=== PATIENT | female | born 1990 | race Hispanic/Latino ===

== ENCOUNTER 2020-08-06 21:41 | Emergency (ER) | payer SELFPAY ==
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
[2020-08-06 22:29] LABS: Absolute Lymphocytes (CBC) 1.6 K/uL (0.7-4.9); Basophils % 1.1 % (0-1.3); Lymphocytes % 21.6 % (15.3-44.8); MPV 9.3 fL (7.6-11.3); RBC Red Blood Cell Count 4.32 M/uL (3.86-4.86)
[2020-08-06] MEDS ORDERED: FAMOTIDINE 20 MG/2 ML VIAL IV ONE (22:36)
[2020-08-06] MEDS ORDERED: MORPHINE 4 MG/ML SYR ONE (22:36)
[2020-08-06] MEDS ORDERED: NA CHLORIDE 0.9% 1,000 ML ONE (22:36)
[2020-08-06] MEDS ORDERED: ONDANSETRON 4 MG/2 ML VIAL ONE (22:36)
[2020-08-06 22:48] LABS: ALT/SGPT 68 U/L (12-78); AST/SGOT 46 U/L (15-37); Albumin 3.7 g/dL (3.4-5.0); Alkaline Phosphatase 124 U/L (45-117); BUN Blood Urea Nitrogen 10 mg/dL (7-18); Bicarbonate 28 mmol/L (21-32); Bilirubin Direct < 0.1 mg/dL (0-0.2); Bilirubin Total 0.2 mg/dL (0.2-1.0); Glucose Level 92 mg/dL (74-106); Lipase 119 U/L (73-393); Potassium 3.5 mmol/L (3.5-5.1); Sodium Level 144 mmol/L (136-145); Troponin (Emerg Dept Use Only) < 0.02 ng/mL (0.0-0.045)
[2020-08-06 23:28] LABS: Urine Blood 2+ (NEG); Urine Glucose NEGATIVE (NEG); Urine Protein NEGATIVE (NEG); Urine Specific Gravity >1.030 (1.005-1.030)
[2020-08-07 00:23] LABS: Urine Amorphous Sediment 2+ /HPF (NONE SEEN); Urine Bacteria >50 /HPF (<20); Urine Culture Reflex Order REFLEXED; Urine Mucus 2+ /HPF (NONE SEEN)
--- NOTE | 2020-08-07 01:53 | ER ---
Nurse's Notes [facility] Name: Gwyn Callejas Age: 30 yrs Sex: Female : 1990 Arrival Date: 08/06/2020 Time: 21:42 Bed 15 Private MD: Diagnosis: Chest pain, unspecified;Abdominal Pain;Cholelithiasis Presentation: 08/06 21:52 Chief complaint: Patient states: Sudden onset of lower chest pain/epigastric pain at ll1 0854 tonight while watching tv sitting on the couch. Pain was so severe she couldn't stand. + SOB at the time. No fever. Coronavirus screen: Client denies travel out of the [place] in the last 14 days. At this time, the client does not indicate any symptoms associated with coronavirus-19. Ebola Screen: Patient denies travel to an Ebola-affected area in the 21 days before illness onset. Initial Sepsis Screen: Does the patient meet any 2 criteria? No. Patient's initial sepsis screen is negative. Risk Assessment: Do you want to hurt yourself or someone else? Patient reports no desire to harm self or others. Onset of symptoms was August 06, 2020. 21:52 Method Of Arrival: EMS: [facility] ll1 21:52 Acuity: MEG 3 ll1 22:30 Initial Sepsis Screen: Does the patient have a suspected source of infection? Yes: wh Acute abdominal pain. 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 - Social history:: Smoking status: Patient denies any tobacco usage or history of. Screenin:00 Abuse screen: Denies threats or abuse. Denies injuries from another. Nutritional screening: No deficits noted. Tuberculosis screening: No symptoms or risk factors identified. Fall Risk None identified. Assessment: 22:05 General: Appears in no apparent distress. Behavior is calm, cooperative, appropriate wh for age. Pain: Complains of pain in chest Pain does not radiate. Pain currently is 4 out of 10 on a pain scale. Quality of pain is described as sharp, Pain began 2 hours ago. Is intermittent. Neuro: Level of Consciousness is awake, alert, obeys commands, Oriented to person, place, time, situation, Appropriate for age. Cardiovascular: Reports chest pain, Heart tones S1 S2 Rhythm is regular. Respiratory: Airway is patent Respiratory effort is even, unlabored, Respiratory pattern is regular, symmetrical, Breath sounds are clear bilaterally. GI: Abdomen is flat, non-distended, Bowel sounds present X 4 quads. Abd is soft Abdomen is tender to palpation in epigastric area. : No signs and/or symptoms were reported regarding the genitourinary system. EENT: No signs and/or symptoms were reported regarding the EENT system. Derm: Skin is intact, is healthy with good turgor, Skin is pink, warm \T\ dry. normal. Musculoskeletal: Circulation, motion, and sensation intact. 23:30 Reassessment: Patient appears in no apparent distress at this time. No changes from previously documented assessment. Patient and/or family updated on plan of care and expected duration. Pain level reassessed. Patient is alert, oriented x 3, equal unlabored respirations, skin warm/dry/pink. 08/07 01:00 Reassessment: Patient appears in no apparent distress at this time. Patient and/or family updated on plan of care and expected duration. Pain level reassessed. Patient is alert, oriented x 3, equal unlabored respirations, skin warm/dry/pink. 02:20 Reassessment: Patient appears in no apparent distress at this time. Patient and/or family updated on plan of care and expected duration. Pain level reassessed. Patient is alert, oriented x 3, equal unlabored respirations, skin warm/dry/pink. Vital Signs: 08/06 21:52 BP 120 / 79; Pulse 88; Resp 18; Temp 98.4; Pulse Ox 100% ; Weight 80.74 kg; Height 5 ll1 ft. 1 in. (154.94 cm); Pain 4/10; 23:30 BP 124 / 74; Pulse 81; Resp 18; Pulse Ox 100% on R/A; 08/07 01:00 BP 124 / 78; Pulse 89; Resp 18; Pulse Ox 100% on R/A; 02:00 BP 118 / 68; Pulse 18; Resp 18; Pulse Ox 99% on R/A; 08/06 21:52 Body Mass Index 33.63 (80.74 kg, 154.94 cm) ll1 ED Course: 08/06 21:42 Patient arrived in ED. cl3 21:54 Triage completed. ll1 21:55 Arm band placed on Patient placed in an exam room, on a stretcher. ll1 22:00 Malcom Noble is Primary Nurse. 22:02 Pedro Choi MD is Attending Physician. 7 22:30 Patient has correct armband on for positive identification. Bed in low position. Call light in reach. Side rails up X 1. manager control on. Pulse ox on. NIBP on. 22:30 No provider procedures requiring assistance completed. Inserted saline lock: 20 gauge in left antecubital area, using aseptic technique. Blood collected. Patient maintains SpO2 saturation greater than 95% on room air. 22:41 Chest Single View XRAY In Process Unspecified. EDWI 08/07 01:16 CT Chest For PE Angio In Process Unspecified. EDMS 01:16 CT Abd/Pelvis - IV Contrast Only In Process Unspecified. EDMS 01:52 Bairon Angeles MD is Referral Physician. [facility] 02:38 IV discontinued, intact, bleeding controlled, No redness/swelling at site. Administered Medications: 08/06 22:26 Drug: NS 0.9% 1000 ml Route: IV; Rate: 1000 ml; Site: left antecubital; 23:06 Follow up: Response: No adverse reaction; IV Status: Completed infusion 22:28 Drug: Pepcid 20 mg Route: IVP; Site: left antecubital; 23:06 Follow up: Response: No adverse reaction 22:30 Drug: Zofran (Ondansetron) 4 mg Route: IVP; Site: left antecubital; 23:06 Follow up: Response: No adverse reaction 08/07 02:35 Not Given (Patient Refused): morphine 2 mg IVP once; RASS on ADMIN: Combtv4, Very wh Agttd3, Agttd2, Rstlss1, AlertClm0, Drwsy-1, Lt Sdtn-2, Mod Sdtn-3, Dp Sdtn-4, UnArsble-5 Outcome: 01:53 Discharge ordered by . [facility] 02:35 Discharged to home ambulatory. 02:35 Condition: stable 02:35 Discharge instructions given to patient, Instructed on discharge instructions, follow up and referral plans. medication usage, POC Demonstrated understanding of instructions, follow-up care, medications, POC Prescriptions given X 3. 02:39 Patient left the ED. Signatures: Dispatcher [employer] EDMS Malcom Noble Marcus Barahona cl3 Radha Barahona RN RN ll1 Pedro Choi MD MD [email or web address] Corrections: (The following items were deleted from the chart) 08/06 22:31 22:26 morphine 2 mg IVP in left antecubital [facility]
--- NOTE | 2020-08-07 01:54 | EDPHYS ---
[facility] Gwyn Callejas Age: 30 yrs Sex: Female : 1990 Arrival Date: 08/06/2020 Time: 21:42 Bed 15 Private MD: ED Physician Pedro Choi HPI: 08/07 00:43 This 30 yrs old Female presents to ER via EMS with complaints of Chest Pain. mh7 00:43 The patient or guardian reports chest pain that is located primarily in the epigastric mh7 area. 00:44 The pain does not radiate. Associated signs and symptoms: Pertinent negatives: cough, mh7 diaphoresis, dizziness, headache, lower extremity pain, lower extremity swelling, lightheadedness, near syncope, palpitations, recent travel, syncope. 00:45 Associated signs and symptoms: Pertinent positives: abdominal pain, shortness of mh7 breath, Pertinent negatives: nausea, vomiting. The chest pain is described as sharp. Duration: The patient or guardian reports multiple episodes, that are intermittent, that wax and wane, with no pattern. Modifying factors: The symptoms are alleviated by nothing. the symptoms are aggravated by nothing. Severity of pain: At its worst the pain was moderate today, in the emergency department the pain is unchanged. 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 - Social history:: Smoking status: Patient denies any tobacco usage or history of. ROS: 08/07 00:45 Constitutional: Negative for fever, chills, and weight loss, Eyes: Negative for injury, mh7 pain, redness, and discharge, ENT: Negative for injury, pain, and discharge, Neck: Negative for injury, pain, and swelling, Back: Negative for injury and pain, : Negative for injury, bleeding, discharge, and swelling, MS/Extremity: Negative for injury and deformity, Skin: Negative for injury, rash, and discoloration, Neuro: Negative for headache, weakness, numbness, tingling, and seizure, Psych: Negative for depression, anxiety, suicide ideation, homicidal ideation, and hallucinations, Allergy/Immunology: Negative for hives, rash, and allergies, Endocrine: Negative for neck swelling, polydipsia, polyuria, polyphagia, and marked weight changes, Hematologic/Lymphatic: Negative for swollen nodes, abnormal bleeding, and unusual bruising. Exam: 00:45 Head/Face: Normocephalic, atraumatic. Eyes: Pupils equal round and reactive to light, mh7 extra-ocular motions intact. Lids and lashes normal. Conjunctiva and sclera are non-icteric and not injected. Cornea within normal limits. Periorbital areas with no swelling, redness, or edema. Neck: Trachea midline, no thyromegaly or masses palpated, and no cervical lymphadenopathy. Supple, full range of motion without nuchal rigidity, or vertebral point tenderness. No Meningismus. Chest/axilla: Normal chest wall appearance and motion. Nontender with no deformity. No lesions are appreciated. Cardiovascular: Regular rate and rhythm with a normal S1 and S2. No gallops, murmurs, or rubs. Normal PMI, no JVD. No pulse deficits. Respiratory: Lungs have equal breath sounds bilaterally, clear to auscultation and percussion. No rales, rhonchi or wheezes noted. No increased work of breathing, no retractions or nasal flaring. 00:45 Back: No spinal tenderness. No costovertebral tenderness. Full range of motion. Skin: Warm, dry with normal turgor. Normal color with no rashes, no lesions, and no evidence of cellulitis. MS/ Extremity: Pulses equal, no cyanosis. Neurovascular intact. Full, normal range of motion. Neuro: Awake and alert, GCS 15, oriented to person, place, time, and situation. Cranial nerves II-XII grossly intact. Motor strength 5/5 in all extremities. Sensory grossly intact. Cerebellar exam normal. Normal gait. Psych: Awake, alert, with orientation to person, place and time. Behavior, mood, and affect are within normal limits. 00:45 Constitutional: The patient appears in no acute distress, alert, awake, uncomfortable. 00:45 Abdomen/GI: Inspection: abdomen appears normal, Bowel sounds: normal, in all quadrants, Palpation: moderate abdominal tenderness, in the epigastric area, Rectal exam: the exam is deferred, because of patient request, Indicators: McBurney's point is not tender, Olivia's sign is negative, Rovsing's sign is negative, Obturator sign is negative, Psoas sign is negative, Liver: no appreciated palpable abnormalities, Hernia: not appreciated. Vital Signs: 08/06 21:52 BP 120 / 79; Pulse 88; Resp 18; Temp 98.4; Pulse Ox 100% ; Weight 80.74 kg; Height 5 ll1 ft. 1 in. (154.94 cm); Pain 4/10; 23:30 BP 124 / 74; Pulse 81; Resp 18; Pulse Ox 100% on R/A; wh 08/07 01:00 BP 124 / 78; Pulse 89; Resp 18; Pulse Ox 100% on R/A; 02:00 BP 118 / 68; Pulse 18; Resp 18; Pulse Ox 99% on R/A; 08/06 21:52 Body Mass Index 33.63 (80.74 kg, 154.94 cm) ll1 MDM: 08/06 22:12 Patient medically screened. 7 08/07 01:50 Differential diagnosis: acute myocardial infarction, acute pericarditis, anxiety, chest [facility] wall pain, cholecystitis, Cholelithiasis costochondritis, esophagitis, gastritis, pancreatitis, peptic ulcer disease, pericarditis, pleurisy, pneumonia, pneumothorax, pulmonary embolus. HEART Score: History: Slightly Suspicious (0), ECG: Normal (0), Age: < or = 45 years (0), Risk Factors: No Risk Factors Known (0), Troponin: < or = 1 x Normal Limit (0), Total Score = 0. Data reviewed: vital signs, nurses notes, lab test result(s), amylase and lipase, cardiac enzymes, CBC, electrolytes, urinalysis. Data interpreted: Pulse oximetry: on room air is 100 %. Interpretation: normal. Counseling: I had a detailed discussion with the patient and/or guardian regarding: the historical points, exam findings, and any diagnostic results supporting the discharge/admit diagnosis, lab results, radiology results, the need for outpatient follow up, to return to the emergency department if symptoms worsen or persist or if there are any questions or concerns that arise at home. Response to treatment: the patient's symptoms have resolved after treatment, the patient's blood pressure is in an acceptable range, mental status has returned to baseline, the patient no longer shows bradycardia, the patient is not short of breath, the patient is not tachycardic, the patient's pain is gone, the patient's temperature has normalized, the patient is now symptom free, patient is well hydrated. 08/06 22:13 Order name: Basic Metabolic Panel [facility] 08/06 22:13 Order name: CBC with Diff; Complete Time: 00:08 [facility] 08/06 22:13 Order name: Hepatic Function [facility] 08/06 22:13 Order name: Lipase; Complete Time: 00:08 [facility] 08/06 22:14 Order name: Basic Metabolic Panel; Complete Time: 00:08 [facility] 08/06 22:14 Order name: Liver (Hepatic) Function; Complete Time: 00:08 [facility] 08/06 22:14 Order name: Troponin (emerg Dept Use Only); Complete Time: 00:08 [facility] 08/06 22:14 Order name: Chest Single View XRAY [facility] 08/06 23:21 Order name: Urine Microscopic Only; Complete Time: 01:24 [facility] 08/06 23:22 Order name: Urine Dipstick--Ancillary (enter results); Complete Time: 00:08 [facility] 08/06 23:22 Order name: Urine --Ancillary (enter results); Complete Time: 00:08 [facility] 08/07 00:09 Order name: CT Chest For PE Angio [facility] 08/07 00:09 Order name: CT Abd/Pelvis - IV Contrast Only [facility] 08/07 00:24 Order name: Urine Culture [facility] 08/06 22:13 Order name: IV Saline Lock; Complete Time: 22:22 [facility] 08/06 22:13 Order name: Labs collected and sent; Complete Time: 22:22 [facility] 08/06 22:13 Order name: EKG - Nurse/Tech; Complete Time: 22:22 [facility] 08/06 22:13 Order name: Urine Dipstick-Ancillary (obtain specimen); Complete Time: 23:22 [facility] 08/06 22:13 Order name: Urine Test (obtain specimen); Complete Time: 23:22 [facility] Administered Medications: 08/06 22:26 Drug: NS 0.9% 1000 ml Route: IV; Rate: 1000 ml; Site: left antecubital; 23:06 Follow up: Response: No adverse reaction; IV Status: Completed infusion 22:28 Drug: Pepcid 20 mg Route: IVP; Site: left antecubital; 23:06 Follow up: Response: No adverse reaction 22:30 Drug: Zofran (Ondansetron) 4 mg Route: IVP; Site: left antecubital; 23:06 Follow up: Response: No adverse reaction 08/07 02:35 Not Given (Patient Refused): morphine 2 mg IVP once; RASS on ADMIN: Combtv4, Very wh Agttd3, Agttd2, Rstlss1, AlertClm0, Drwsy-1, Lt Sdtn-2, Mod Sdtn-3, Dp Sdtn-4, UnArsble-5 Disposition: 08/07/20 01:53 Discharged to Home. Impression: Chest pain, unspecified, Abdominal Pain, Cholelithiasis. - Condition is Stable. - Discharge Instructions: Cholelithiasis, Uild-lg-Swmn, Abdominal Pain, Adult, Kiiu-dy-Qgvf, Nonspecific Chest Pain, Ifim-kn-Afes. - Prescriptions for Zofran ODT 4 mg Oral tablet,disintegrating - place 1 tablet by TRANSLINGUAL route every 8 hours As needed; 6 tablet. Bentyl 20 mg Oral Tablet - take 1 tablet by ORAL route every 6 hours As needed; 20 tablet. Ibuprofen 800 mg Oral Tablet - take 1 tablet by ORAL route every 8 hours As needed take with food; 12 tablet. - Medication Reconciliation Form, Thank You Letter, Antibiotic Education, Prescription Opioid Use form. - Follow up: Private Physician; When: 1 - 2 days; Reason: Worsening of condition, Recheck today's complaints, Continuance of care, Re-evaluation by your physician. Follow up: Bairon Angeles MD; When: 1 - 2 days; Reason: Worsening of condition, Recheck today's complaints. - Problem is new. - Symptoms have improved. Signatures: Dispatcher [employer] EDCO Malcom Noble Radha Barahona RN RN ll1 Pedro Choi MD MD mh7 Corrections: (The following items were deleted from the chart) 02:39 01:53 08/07/2020 01:53 Discharged to Home. Impression: Chest pain, unspecified; wh Abdominal Pain; Cholelithiasis. Condition is Stable. Forms are Medication Reconciliation Form, Thank You Letter, Antibiotic Education, Prescription Opioid Use. Follow up: Private Physician; When: 1 - 2 days; Reason: Worsening of condition, Recheck today's complaints, Continuance of care, Re-evaluation by your physician. Follow up: Bairon Angeles; When: 1 - 2 days; Reason: Worsening of condition, Recheck today's complaints. Problem is new. Symptoms have improved. mh7
[2020-08-07 02:48] VITALS: TEMP 98.4
[2020-08-07 02:51] VITALS: BP 118/68; O2SAT 99
--- NOTE | 2020-08-07 13:42 | RAD REPORT ---
EXAM DESCRIPTION: Vielka Single View08/06/2020 10:42 pm CLINICAL HISTORY: Chest pain COMPARISON: none FINDINGS: The lungs appear clear of acute infiltrate. The heart is normal size IMPRESSION: No acute abnormalities displayed
--- NOTE | 2020-08-07 21:32 | RAD REPORT ---
EXAM DESCRIPTION: CT - Abdomen Pelvis W Contrast - 08/07/2020 6:47 am CLINICAL HISTORY: CHEST PAIN TECHNIQUE: Contiguous axial images obtained through the chest during angiographic phase following th e uneventful administration of IV contrast. Sagittal and coronal reformatted images were provided. AL P reformatted images were provided. This exam was performed according to our departmental dose-optimization program, which includes autom ated exposure control, adjustment of the mA and/or kV according to patient size and/or use of iterati ve reconstruction technique. COMPARISON: No prior exams provided for comparison. FINDINGS: Diagnostic quality: There is good opacification of the pulmonary arterial tree. Motion art ifact degrades image quality and limits evaluation of segmental and subsegmental vessels. Lungs: 4 mm right apical nodule (series 401 image 26). No focal consolidation. Airways are patent. Pleura: No effusion. No pneumothorax. Heart and pericardium: The heart is normal in size. Minimal pericardial fluid. Mediastinum and troy: No pathologically enlarged lymph nodes. Lower neck and chest wall: Unremarkable Vessels: No pulmonary arterial filling defects. No thoracic aortic aneurysm. Bones: Minimal multilevel osteophytic lipping. No acute fracture. IMPRESSION: 1. Motion artifact degrades image quality and limits evaluation of segmental and subse gmental vessels. No central pulmonary embolic disease. 2. No focal infiltrate. 3. Other findings as above. EXAM DESCRIPTION: CT ABDOMEN PELVIS WITH IV CONTRAST (accession [id number]) CLINICAL HISTORY: ABDOMINAL PAIN TECHNIQUE: Contiguous axial images obtained through the abdomen and pelvis following the uneventful administration of IV contrast. Coronal and sagittal reformatted images were provided. This exam was performed according to our departmental dose-optimization program, which includes autom ated exposure control, adjustment of the mA and/or kV according to patient size and/or use of iterati ve reconstruction technique. COMPARISON: None available for comparison. FINDINGS: Liver: The liver is enlarged. Gallbladder and biliary system: Gallstones within a contracted gallbladder. The gallbladder wall is t op normal in thickness. No pericholecystic fluid. Pancreas: Unremarkable Spleen: Unremarkable Adrenals: Unremarkable Kidneys: Normal renal cortical enhancement. No calculi. No hydronephrosis. Bowel: Moderate stool. No obstruction. No appreciable mucosal thickening. Appendix: Normal caliber appendix. No findings to suggest acute appendicitis. Urinary bladder: Unremarkable Reproductive: Unremarkable as visualized Lymph nodes: No pathologically enlarged lymph nodes. Peritoneum: No focal fluid collection. No free air. Vessels: No abdominal aortic aneurysm. Abdominal wall: Tiny fat-containing umbilical hernia. Bones: Mild to moderate degenerative changes at L5-S1. No acute fracture. IMPRESSION: 1. Cholelithiasis. Top normal gallbladder wall thickness. No pericholecystic fluid. 2. Moderate stool. No obstruction. 3. Other findings as above. Electronically signed by: Dimitry Odell MD 08/07/2020 1:36 AM CDT Due to temporary technical issues with the PACS/Fluency reporting system, reports are being signed by the in house radiologist without review as a courtesy to ensure prompt reporting. The interpreting r adiologist is fully responsible for the content of the report.
--- NOTE | 2020-08-07 21:36 | RAD REPORT ---
EXAM DESCRIPTION: CT CHEST ANGIOGRAPHY WITH IV CONTRAST CLINICAL HISTORY: CHEST PAIN TECHNIQUE: Contiguous axial images obtained through the chest during angiographic phase following th e uneventful administration of IV contrast. Sagittal and coronal reformatted images were provided. [place] P reformatted images were provided. This exam was performed according to our departmental dose-optimization program, which includes autom ated exposure control, adjustment of the mA and/or kV according to patient size and/or use of iterati ve reconstruction technique. COMPARISON: No prior exams provided for comparison. FINDINGS: Diagnostic quality: There is good opacification of the pulmonary arterial tree. Motion art ifact degrades image quality and limits evaluation of segmental and subsegmental vessels. Lungs: 4 mm right apical nodule (series 401 image 26). No focal consolidation. Airways are patent. Pleura: No effusion. No pneumothorax. Heart and pericardium: The heart is normal in size. Minimal pericardial fluid. Mediastinum and troy: No pathologically enlarged lymph nodes. Lower neck and chest wall: Unremarkable Vessels: No pulmonary arterial filling defects. No thoracic aortic aneurysm. Bones: Minimal multilevel osteophytic lipping. No acute fracture. IMPRESSION: 1. Motion artifact degrades image quality and limits evaluation of segmental and subse gmental vessels. No central pulmonary embolic disease. 2. No focal infiltrate. 3. Other findings as above. EXAM DESCRIPTION: CT ABDOMEN PELVIS WITH IV CONTRAST (accession [id number]) CLINICAL HISTORY: ABDOMINAL PAIN TECHNIQUE: Contiguous axial images obtained through the abdomen and pelvis following the uneventful administration of IV contrast. Coronal and sagittal reformatted images were provided. This exam was performed according to our departmental dose-optimization program, which includes autom ated exposure control, adjustment of the mA and/or kV according to patient size and/or use of iterati ve reconstruction technique. COMPARISON: None available for comparison. FINDINGS: Liver: The liver is enlarged. Gallbladder and biliary system: Gallstones within a contracted gallbladder. The gallbladder wall is t op normal in thickness. No pericholecystic fluid. Pancreas: Unremarkable Spleen: Unremarkable Adrenals: Unremarkable Kidneys: Normal renal cortical enhancement. No calculi. No hydronephrosis. Bowel: Moderate stool. No obstruction. No appreciable mucosal thickening. Appendix: Normal caliber appendix. No findings to suggest acute appendicitis. Urinary bladder: Unremarkable Reproductive: Unremarkable as visualized Lymph nodes: No pathologically enlarged lymph nodes. Peritoneum: No focal fluid collection. No free air. Vessels: No abdominal aortic aneurysm. Abdominal wall: Tiny fat-containing umbilical hernia. Bones: Mild to moderate degenerative changes at L5-S1. No acute fracture. IMPRESSION: 1. Cholelithiasis. Top normal gallbladder wall thickness. No pericholecystic fluid. 2. Moderate stool. No obstruction. 3. Other findings as above. Electronically signed by: Dimitry Odell MD 08/07/2020 1:36 AM CDT Due to temporary technical issues with the PACS/Fluency reporting system, reports are being signed by the in house radiologist without review as a courtesy to ensure prompt reporting. The interpreting r adiologist is fully responsible for the content of the report.
== END 2020-08-07 02:39 | disposition home or self-care (01) ==
LOC: ER 21:41
DX: K80.20 Calculus of gallbladder without cholecystitis without obstruction (principal); R10.13 Epigastric pain
CPT/HCPCS: 36415; 71045; 71275; 74177; 80048; 80076; 81003; 81015; 81025; 83690; 84484; 85025; 87086; 87088; 93005; 96361; 96374; 96375; 99285; J2405; J7030; Q9967

== ENCOUNTER 2021-01-08 16:26 | Emergency (ER) | payer SELFPAY ==
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
[2021-01-08] MEDS ORDERED: ACETAMINOPHEN 500 MG TAB ONE (17:17)
[2021-01-08] MEDS ORDERED: ONDANSETRON 4 MG (ODT) TAB ONE (17:17)
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
--- NOTE | 2021-01-08 17:56 | RAD REPORT ---
EXAM DESCRIPTION: RAD - Shoulder Right 2 View - 01/08/2021 5:00 pm CLINICAL HISTORY: PAIN COMPARISON: No comparisons FINDINGS: No fracture or dislocation seen.
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
[2021-01-08] MEDS ORDERED: KETOROLAC 30 MG/ML INJ ONE (18:41)
[2021-01-08] MEDS ORDERED: CYCLOBENZAPRINE 10 MG TAB ONE (18:41)
[2021-01-08 19:45] VITALS: O2SAT 99
[2021-01-08 19:46] VITALS: BP 122/80; TEMP 98
== END 2021-01-08 18:41 | disposition home or self-care (01) ==
LOC: ER 16:26
DX: M54.2 Cervicalgia (principal); M25.511 Pain in right shoulder
CPT/HCPCS: 70450; 72125; 96372; 99284

== ENCOUNTER 2021-03-10 20:23 | Emergency (ER) | payer SELFPAY ==
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
--- NOTE | 2021-03-11 00:30 | ER ---
Nurse's Notes [facility] Name: Gwyn Callejas Age: 30 yrs Sex: Female : 1990 Arrival Date: 03/10/2021 Time: 20:27 Bed External Waiting Private MD: Diagnosis: Presentation: 03/10 20:36 Chief complaint: Patient states: I have pain on my right lower back that comes to the jb4 front. It started 2 days ago and the pain comes and goes but is very severe tonight. I feel like it is a kidney stone. i have had them before. Coronavirus screen: Client denies travel out of the [place] in the last 14 days. At this time, the client does not indicate any symptoms associated with coronavirus-19. Ebola Screen: No symptoms or risks identified at this time. Initial Sepsis Screen: Does the patient meet any 2 criteria? HR > 90 bpm. Yes Does the patient have a suspected source of infection? Yes:. Risk Assessment: Do you want to hurt yourself or someone else? Patient reports no desire to harm self or others. Onset of symptoms was March 08, 2021. Transition of care: patient was not received from another setting of care. 20:36 Method Of Arrival: Ambulatory 4 20:36 Acuity: MEG 3 jb4 Historical: - Allergies: 20:40 No Known Allergies; jb4 - Home Meds: 20:40 amitriptyline Oral [Active]; phentermine oral oral [Active]; jb4 - PMHx: 20:40 Migraines; Anxiety; Kidney stones; jb4 - PSHx: 20:40 None; jb4 - Immunization history:: Adult Immunizations up to date. - Social history:: Smoking status: Patient denies any tobacco usage or history of. Patient/guardian denies using alcohol, street drugs. Vital Signs: 20:36 BP 126 / 92; Pulse 99; Resp 16; Temp 98.2(O); Pulse Ox 100% on R/A; Weight 77.11 kg jb4 (R); Height 5 ft. 1 in. (154.94 cm) (R); Pain 10/10; 20:36 Body Mass Index 32.12 (77.11 kg, 154.94 cm) 4 ED Course: 20:27 Patient arrived in ED. es 20:38 Triage completed. jb4 20:40 Arm band placed on right wrist. jb4 23:23 Chicho Freeman PA is PHCP. malgorzata 23:23 Pedro Choi MD is Attending Physician. cp Administered Medications: No medications were administered Outcome: 03/11 00:29 Eloped from waiting room, Time discovered patient gone: March 10, 2021 at 23:15 jb4 00:29 Patient left the ED. jb4 Signatures: Arabella Mclean Corey, PA PA Bairon Martin, RN RN jb4
[2021-03-11 00:38] VITALS: BP 126/92; TEMP 98.2; O2SAT 100
== END 2021-03-11 00:29 | disposition left against medical advice (07) ==
LOC: ER 20:23
DX: M54.5 Low back pain (principal); Z53.21 Procedure and treatment not carried out due to patient leaving prior to being seen by health care provider
CPT/HCPCS: 99281

== ENCOUNTER 2021-03-17 10:21 | Day surgery (SDC) | payer SELFPAY ==
[2021-03-17] MEDS ORDERED: CEFOXITIN/SWI 2gm 2 GM/20 ML SYR IV ONE (10:45)
[2021-03-17] MEDS ORDERED: Ringers Lactate 1,000 ML IV ONE (11:13)
[2021-03-17] MEDS ORDERED: MIDAZOLAM HCL 2 MG/2 ML INJ ONE (11:41)
[2021-03-17] MEDS ORDERED: dexAMETHasone 10 MG/ML VIAL ONE (11:41)
[2021-03-17] MEDS ORDERED: FENTANYL CITR 100 MCG/2 ML ONE (11:41)
[2021-03-17] MEDS ORDERED: propofoL 200 MG/20 ML VIAL IV ONE (11:41)
[2021-03-17] MEDS ORDERED: ONDANSETRON 4 MG/2 ML VIAL ONE ×2 (11:42→14:01)
[2021-03-17] MEDS ORDERED: ROCURONIUM 50 MG/5 ML VIAL IV ONE (11:42)
[2021-03-17] MEDS ORDERED: LIDOCAINE 2% MPF 5 ML VIAL ONE (11:42)
[2021-03-17] MEDS ORDERED: BUPIVACAINE 0.25% PF 30 ML VIAL ONE (11:57)
--- NOTE | 2021-03-17 13:25 | P.OP ---
Preoperative diagnosis: Cholecystitis with cholelithiasis Postoperative diagnosis: Cholecystitis with cholelithiasis Primary procedure: Laparoscopic Cholecystectomy Secondary procedure: intraoperative ICG cholangiography Anesthesia: GETA + Local Estimated blood loss: <10cc Specimen: Gallbladder Findings: short cystic duct, multistone cholelithiasis Complications: None Transferred to: Recovery Room Condition: Good
[2021-03-17] MEDS ORDERED: KETOROLAC 30 MG/ML INJ ONE (13:29)
[2021-03-17] MEDS: MORPHINE 4 MG/ML SYR ONE ×2 (13:45→14:00)
[2021-03-17] MEDS ORDERED: PROMETHAZINE INJ 25 MG/ML AMP ONE (14:10)
[2021-03-17] MEDS ORDERED: HYDROMORPHONE HCL 1 MG/ML INJ ONE (14:27)
[2021-03-17 15:37] VITALS: BP 110/70; TEMP 97.2; O2SAT 100
[2021-03-17] MEDS ORDERED: HYDROCODONE/APAP 7.5/325 MG TAB ONE (15:42)
--- NOTE | 2021-03-18 00:35 | OP ---
Date of Procedure: 03/17/2021 Surgeon: Aries Mckeon MD, Preoperative Diagnosis: Cholecystitis with cholelithiasis. Postoperative Diagnosis: Cholecystitis with cholelithiasis. Procedure Performed: 1. Laparoscopic cholecystectomy. 2. Intraoperative ICG cholangiography. Anesthesia: General endotracheal plus local with 0.25% Marcaine. Estimated Blood Loss: Less than 10 cc. Specimen: Gallbladder. Findings: Short cystic duct and multi-stone cholelithiasis. Complications: None. Disposition: The patient was transferred to recovery room in good condition. Procedure In Detail: After informed consent was obtained, the patient was brought to the operating room and prepped and draped in the usual sterile fashion. After adequate anesthesia was achieved, a supraumbilical area was anesthetized 0.25% Marcaine, sharply incised. A 5 mm trocar was introduced in the abdomen without evidence of complication. Insufflation was obtained to 15 mmHg at this time. No injury to vital structures upon entry to the abdomen. Three additional trocars were placed in the epigastrium and right upper quadrant. All these were similarly anesthetized and sharply incised. A 5 mm trocar was introduced in the abdomen without evidence of complication. The umbilical trocar was then up-sized to a 12 mm under direct visualization without evidence of complication. The patient was positioned in head up right-side up position. Ratcheted grasper was used to grasp the patient's gallbladder, placed towards the patient's right shoulder. Dissection continued down to the Esha pouch and the dissected to the region of the gallbladder. Circumferentially dissected out 2 structures identified as the cystic duct and cystic artery. At this point, I performed fluorescent IOC with administration of 0.75cc of 2.5 mg/mL of ICG in a fluorescein motion pictures cartoonist to establish critical view of cystic artery, cystic duct and common bile duct. Critical view was achieved and the cholangiography was successfully completed at this point. I then placed double titanium clips on the proximal side and singly on distal side of both the cystic duct and cystic artery and ligated the 2 structures with endo Tiki. There was minimal spillage of bile from the residual gallbladder from the tip where the clip had slipped off during manipulation of the gallbladder. The gallbladder was removed from the hepatic fossa without evidence of complication and placed in EndoCatch bag and removed the umbilical trocar. Reinsufflation was obtained at this time. The area was copiously irrigated multiple times and suctioned out until completely clear. The clips were found to be in good anatomic position without any evidence of bleeding. No hemostatic maneuvers required at the end of the procedure, and the patient was positioned back in neutral position. The remaining effluent was suctioned out. The umbilical trocar site was closed using a Jass-Edelmira suture passer with a 0 Vicryl in interrupted fashion with good approximation of tissues. Remaining trocars were then removed. All skin incisions were copiously irrigated and closed with 4-0 Monocryl after irrigation in a running fashion. Dermabond was placed over top. The patient tolerated the procedure well without evidence of complication and transferred to PACU in good condition. All counts were correct at the end of the case. SHAHRAM/DANICA Voice ID: [id number] Report ID: [id number] MTDD
== END 2021-03-17 16:00 | disposition home or self-care (01) ==
LOC: OR 10:21
PROVIDERS: ATTEND Surgery
PROC: 0FT44ZZ Resection of Gallbladder, Percutaneous Endoscopic Approach (ICD-10-PCS; principal; 2021-03-17 12:30)
DX: K80.10 Calculus of gallbladder with chronic cholecystitis without obstruction (principal); Z20.822 Contact with and (suspected) exposure to COVID-19
CPT/HCPCS: 81025; 88304; J0694; J1100; J1170; J2250; J2405; J2550; J2704; J3010; J7120

== ENCOUNTER 2021-07-03 18:24 | Emergency (ER) | payer SELFPAY ==
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
[2021-07-03 19:34] LABS: Urine Blood 2+ (Negative); Urine Glucose Negative (Negative); Urine Protein Negative (Negative); Urine Specific Gravity 1.015 (1.005-1.030); Urine pH 8.5 (5.0-7.0)
[2021-07-03 19:44] LABS: Urine Specific Gravity/Preg 1.015 (1.005-1.030)
[2021-07-03 20:11] LABS: Absolute Lymphocytes (CBC) 1.4 K/uL (0.7-4.9); Basophils % 1.1 % (0-1.3); Hematocrit 34.2 % (36.0-45.0); Lymphocytes % 20.2 % (15.3-44.8); MPV 8.8 fL (7.6-11.3); RBC Red Blood Cell Count 3.94 M/uL (3.86-4.86)
[2021-07-03 20:17] LABS: Protime INR 1.12
[2021-07-03] MEDS ORDERED: NA CHLORIDE 0.9% 1,000 ML ONE (20:28)
[2021-07-03] MEDS ORDERED: ONDANSETRON 4 MG/2 ML VIAL ONE (20:28)
[2021-07-03 20:30] LABS: ALT/SGPT 55 U/L (12-78); AST/SGOT 16 U/L (15-37); Albumin 3.5 g/dL (3.4-5.0); Alkaline Phosphatase 97 U/L (45-117); BUN Blood Urea Nitrogen 5 mg/dL (7-18); Bicarbonate 26 mmol/L (21-32); Bilirubin Direct 0.1 mg/dL (0-0.2); Bilirubin Total 0.3 mg/dL (0.2-1.0); Creatine Phosphokinase 127 U/L (26-192); Glucose Level 88 mg/dL (74-106); NT PRO-BNP 26 pg/mL (<125); Potassium 3.5 mmol/L (3.5-5.1); Protein, Total 6.5 g/dL (6.4-8.2); Sodium Level 143 mmol/L (136-145); Troponin (Emerg Dept Use Only) < 0.02 ng/mL (0.0-0.045)
--- NOTE | 2021-07-03 20:57 | RAD REPORT ---
EXAM DESCRIPTION: RAD - Chest Single View - 07/03/2021 8:29 pm CLINICAL HISTORY: syncope COMPARISON: Portable July 2020 TECHNIQUE: AP portable chest image was obtained 07/03/2021 8:29 pm . FINDINGS: Lungs are clear. Interstitial pattern matches comparison. Heart and vasculature are normal . No measurable pleural effusion and no pneumothorax. No acute bony abnormality seen. No acute aortic findings suspected. IMPRESSION: No acute cardiopulmonary process. No significant change from comparison study.
--- NOTE | 2021-07-03 22:50 | ER ---
Nurse's Notes [facility] Name: Gwyn Callejas Age: 30 yrs Sex: Female : 1990 Arrival Date: 07/03/2021 Time: 19:13 Bed 25 Private MD: Diagnosis: Syncope Near Presentation: 07/03 19:14 Chief complaint: EMS states: was out working in the sun for 3 hours, only had one water em bottle, HR 114, BP 134 systolic, BGL 153. Coronavirus screen: Client denies travel out of the [place] in the last 14 days. Ebola Screen: Patient negative for fever greater than or equal to 101.5 degrees Fahrenheit, and additional compatible Ebola Virus Disease symptoms Patient denies exposure to infectious person. Patient denies travel to an Ebola-affected area in the 21 days before illness onset. No symptoms or risks identified at this time. Initial Sepsis Screen: Does the patient meet any 2 criteria? HR > 90 bpm. No. Patient's initial sepsis screen is negative. Does the patient have a suspected source of infection? No. Patient's initial sepsis screen is negative. Risk Assessment: Do you want to hurt yourself or someone else? Patient reports no desire to harm self or others. Onset of symptoms was July 03, 2021. 19:14 Method Of Arrival: EMS: [facility] em 19:14 Acuity: MEG 3 em GENERAL ACTIVITIES THERAPIST: 19:16 LMP 07/03/2021 em Historical: - Allergies: 19:16 No Known Allergies; em - PMHx: 19:16 Anxiety; Kidney stones; Migraines; Lupus erythematosus; em - PSHx: 19:16 Cholecystectomy; em - Immunization history:: Client reports receiving the 1st dose of the Covid vaccine. - Social history:: Smoking status: Patient denies any tobacco usage or history of. Screenin:06 Abuse screen: Denies threats or abuse. Denies injuries from another. Nutritional zb screening: No deficits noted. Tuberculosis screening: No symptoms or risk factors identified. Fall Risk None identified. Assessment: 20:00 General: Appears in no apparent distress. uncomfortable, Behavior is anxious. Pain: zb Complains of pain in abdomen and right arm. Neuro: Level of Consciousness is awake, alert, obeys commands, Oriented to person, place, time. Neuro: Reports dizziness, headache weakness. Cardiovascular: Heart tones S1 S2 Capillary refill < 3 seconds Patient's skin is warm and dry. Respiratory: Airway is patent Respiratory effort is even, unlabored, Respiratory pattern is regular, symmetrical. GI: Reports nausea, vomiting. Derm: Skin is intact, is healthy with good turgor. Musculoskeletal: Range of motion: intact in all extremities. 20:12 Reassessment: pt c/o nausea notified ecp. medication ordered and given. zb 21:00 Reassessment: Patient appears in no apparent distress at this time. Patient and/or zb family updated on plan of care and expected duration. Pain level reassessed. Patient is alert, oriented x 3, equal unlabored respirations, skin warm/dry/pink. IV fluids infusing. 21:30 Reassessment: Patient appears in no apparent distress at this time. Patient and/or zb family updated on plan of care and expected duration. Pain level reassessed. Patient is alert, oriented x 3, equal unlabored respirations, skin warm/dry/pink. 22:06 Reassessment: Patient appears in no apparent distress at this time. Patient and/or zb family updated on plan of care and expected duration. Pain level reassessed. Patient is alert, oriented x 3, equal unlabored respirations, skin warm/dry/pink. Iv fluids completed. patient states is feeling better. ecp notified. 22:35 Reassessment: patient stated that she wanted to get tested for covid. ecp notified. zb patient also c/o headache. ecp made aware. medication ordered and given. Vital Signs: 19:14 BP 111 / 70; Pulse 93; Resp 18; Temp 97.8; Pulse Ox 98% on R/A; Weight 75.75 kg; Height em 5 ft. 1 in. (154.94 cm); Pain 5/10; 20:01 BP 112 / 78; Pulse 90; Resp 18; Pulse Ox 100% on R/A; zb 21:30 BP 110 / 74; Pulse 85; Resp 16; Pulse Ox 100% on R/A; zb 22:34 BP 120 / 85; Pulse 88; Resp 16; Pulse Ox 100% on R/A; zb 19:14 Body Mass Index 31.55 (75.75 kg, 154.94 cm) em ED Course: 19:13 Patient arrived in ED. em 19:14 Silas Dash PA is PHCP. [facility] 19:14 Pedro Choi MD is Attending Physician. [facility] 19:16 Triage completed. em 19:16 Arm band placed on. em 20:01 Aaliyah Alarcon RN is Primary Nurse. zb 20:02 Maintain EMS IV. Dressing intact. Good blood return noted. Site clean \T\ dry. Gauge \T\ zb site: 20LAC . 20:29 XRAY Chest (1 view) In Process Unspecified. EDMS 22:36 Patient has correct armband on for positive identification. Placed in gown. Bed in low zb position. financial coordinator on. Pulse ox on. NIBP on. Door closed. Noise minimized. 23:00 No provider procedures requiring assistance completed. IV discontinued, intact, zb bleeding controlled, No redness/swelling at site. Pressure dressing applied. Administered Medications: 20:05 Drug: Zofran (Ondansetron) 4 mg Route: IVP; Site: left antecubital; zb 22:03 Follow up: Response: No adverse reaction; Nausea is decreased zb 20:12 Drug: NS 0.9% 1000 ml Route: IV; Rate: 1 bolus; Site: left antecubital; zb 22:03 Follow up: Response: No adverse reaction; IV Status: Completed infusion; IV Intake: zb 1000ml 22:32 Drug: Acetaminophen 650 mg Route: PO; zb 22:32 Follow up: Response: No adverse reaction; Medication administered at discharge. zb Intake: 22:03 IV: 1000ml; Total: 1000ml. zb Outcome: 22:50 Discharge ordered by . tasia 23:00 Discharged to home ambulatory. zb 23:00 Condition: stable 23:00 Discharge instructions given to patient, Instructed on discharge instructions, follow up and referral plans. Demonstrated understanding of instructions, follow-up care. 23:20 Patient left the ED. zb Signatures: Dispatcher [employer] EDVT Silas Dash PA PA jmm Munoz, Edgar, RN RN Aaliyah Alarcon RN RN zb
--- NOTE | 2021-07-03 22:50 | EDPHYS ---
Physician Documentation [facility] Name: Gwyn Callejas Age: 30 yrs Sex: Female : 1990 Arrival Date: 07/03/2021 Time: 19:13 Bed 25 Private MD: ED Physician Pedro Choi HPI: 07/03 20:04 This 30 yrs old Female presents to ER via EMS with complaints of Syncope, heat jmm exhaustion. 20:04 Onset: The symptoms/episode began/occurred acutely, just prior to arrival. This is a jmm 30-year-old female with history of anxiety, lupus that presents emerged department with complaints of weakness, fatigue, near syncope. Patient states this occurred while she was outside for approximately 3 hours. Patient does not believe she drink enough water. Patient also complained of numbness and tingling to her entire body.. 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 - Social history:: Smoking status: Patient denies any tobacco usage or history of. ROS: 20:04 Constitutional: Positive for fatigue. jmm 20:04 Respiratory: Positive for shortness of breath. 20:04 Neuro: Positive for numbness, weakness. 20:04 All other systems are negative. Exam: 20:04 Constitutional: This is a well developed, well nourished patient who is awake, alert, jmm and in no acute distress. Head/Face: atraumatic. Eyes: EOMI, no conjunctival erythema appreciated ENT: Moist Mucus Membranes Neck: Trachea midline, Supple Chest/axilla: Normal chest wall appearance and motion. Cardiovascular: Regular rate and rhythm. No edema appreciated Respiratory: Normal respirations, no respiratory distress appreciated Abdomen/GI: Non distended, soft Back: Normal ROM Skin: General appearance color normal MS/ Extremity: Moves all extremities, no obvious deformities appreciated, no edema noted to the lower extremities Neuro: Awake and alert, normal gait Psych: Behavior is normal, Mood is normal, Patient is cooperative and pleasant Vital Signs: 19:14 BP 111 / 70; Pulse 93; Resp 18; Temp 97.8; Pulse Ox 98% on R/A; Weight 75.75 kg; Height em 5 ft. 1 in. (154.94 cm); Pain 5/10; 20:01 BP 112 / 78; Pulse 90; Resp 18; Pulse Ox 100% on R/A; zb 21:30 BP 110 / 74; Pulse 85; Resp 16; Pulse Ox 100% on R/A; zb 22:34 BP 120 / 85; Pulse 88; Resp 16; Pulse Ox 100% on R/A; zb 19:14 Body Mass Index 31.55 (75.75 kg, 154.94 cm) em MDM: 19:15 Patient medically screened. howie 22:09 Data reviewed: vital signs, nurses notes. Counseling: I had a detailed discussion with howie the patient and/or guardian regarding: the historical points, exam findings, and any diagnostic results supporting the discharge/admit diagnosis, the need for outpatient follow up, to return to the emergency department if symptoms worsen or persist or if there are any questions or concerns that arise at home. 07/03 19:15 Order name: Basic Metabolic Panel; Complete Time: 20:36 [facility] 07/03 19:15 Order name: CBC with Diff; Complete Time: 20:21 [facility] 07/03 19:15 Order name: LFT's; Complete Time: 20:36 [facility] 07/03 19:15 Order name: Magnesium; Complete Time: 20:36 [facility] 07/03 19:15 Order name: NT PRO-BNP; Complete Time: 20:36 [facility] 07/03 19:15 Order name: PT-INR; Complete Time: 20:27 [facility] 07/03 19:15 Order name: Troponin (emerg Dept Use Only); Complete Time: 20:36 [facility] 07/03 19:15 Order name: XRAY Chest (1 view); Complete Time: 21:07 [facility] 07/03 19:15 Order name: CPK; Complete Time: 20:36 [facility] 07/03 19:33 Order name: Urine Dipstick-Ancillary; Complete Time: 19:40 [facility] 07/03 19:38 Order name: Urine --Ancillary (enter results) 2 07/03 22:27 Order name: COVID-19 : Document "Date of Symptom Onset" if Symptomatic. [facility] 07/03 19:15 Order name: EKG; Complete Time: 19:16 [facility] 07/03 19:15 Order name: Cardiac monitoring; Complete Time: 20: [facility] 07/03 19:15 Order name: EKG - Nurse/Tech; Complete Time: 20: [facility] 07/03 19:15 Order name: IV Saline Lock; Complete Time: 20: [facility] 07/03 19:15 Order name: Labs collected and sent; Complete Time: 20: [facility] 07/03 19:15 Order name: O2 Per Protocol; Complete Time: 20: [facility] 07/03 19:15 Order name: O2 Sat Monitoring; Complete Time: 20: [facility] 07/03 19:15 Order name: Urine Dipstick-Ancillary (obtain specimen); Complete Time: 19:28 [facility] Administered Medications: 20:05 Drug: Zofran (Ondansetron) 4 mg Route: IVP; Site: left antecubital; zb 22:03 Follow up: Response: No adverse reaction; Nausea is decreased zb 20:12 Drug: NS 0.9% 1000 ml Route: IV; Rate: 1 bolus; Site: left antecubital; zb 22:03 Follow up: Response: No adverse reaction; IV Status: Completed infusion; IV Intake: zb 1000ml 22:32 Drug: Acetaminophen 650 mg Route: PO; zb 22:32 Follow up: Response: No adverse reaction; Medication administered at discharge. zb Disposition: 07/04 06:36 Co-signature as Attending Physician, Pedro Choi MD. [email or web address] Disposition Summary: 07/03/21 22:50 Discharge Ordered Location: Home [facility] Condition: Stable [facility] Diagnosis - Syncope Near jmm Followup: [facility] - With: Private Physician - When: 2 - 3 days - Reason: Recheck today's complaints, Continuance of care, Re-evaluation by your physician Discharge Instructions: - Discharge Summary Sheet [facility] - Near-Syncope m - Heat Exhaustion [facility] - Preventing Heat Exhaustion, Adult jm Forms: - Medication Reconciliation Form [facility] - Thank You Letter m - Antibiotic Education m - Prescription Opioid Use [facility] Signatures: Dispatcher [employer] EDSilas Conner PA PA jmm Munoz, Edgar, RN RN em Holmes, Maurice, MD MD 7 Aaliyah Alarcon, RN RN zb
[2021-07-03] MEDS ORDERED: ACETAMINOPHEN 325 MG TABLET ONE (22:52)
[2021-07-03 23:26] VITALS: TEMP 97.8
[2021-07-03 23:27] VITALS: O2SAT 100
[2021-07-03 23:30] VITALS: BP 120/85
== END 2021-07-03 23:20 | disposition home or self-care (01) ==
LOC: ER 18:24
DX: R55 Syncope and collapse (principal); Z20.822 Contact with and (suspected) exposure to COVID-19
CPT/HCPCS: 36415; 71045; 80048; 80076; 81003; 81025; 82550; 83735; 83880; 84484; 85025; 85610; 93005; 96361; 96374; 99284; J2405; J7030

== ENCOUNTER 2024-07-02 07:08 | Emergency (ER) | payer SELFPAY ==
[2024-07-02] MEDS ORDERED: ONDANSETRON 4 MG/2 ML VIAL ONE (07:41)
[2024-07-02] MEDS ORDERED: GABAPENTIN 300 MG CAP ONE (07:41)
[2024-07-02] MEDS ORDERED: CYCLOBENZAPRINE 10 MG TAB ONE (07:42)
[2024-07-02] MEDS ORDERED: ACETAMINOPHEN 500 MG TAB ONE (07:42)
[2024-07-02] MEDS ORDERED: dexAMETHasone 10 MG/ML VIAL ONE (07:42)
[2024-07-02] MEDS ORDERED: MORPHINE 4 MG/ML SYR ONE ×2 (07:43→13:04)
--- NOTE | 2024-07-02 07:50 | RAD REPORT ---
EXAM DESCRIPTION: CT - Spine Lumbar Wo Con - 07/02/2024 7:35 am CLINICAL HISTORY: PAIN COMPARISON: No comparisons TECHNIQUE: Axial noncontrast CT imaging of the lumbar spine was performed with coronal and sagittal re-formatted images. All CT scans are performed using dose optimization technique as appropriate and may include automated exposure control or mA/KV adjustment according to patient size. FINDINGS: No acute lumbar spine fracture seen. No aggressive marrow pattern or malalignment. Cholecy stectomy IUD. Paraspinal tissues are normal in thickness. No paraspinal abscess or hematoma seen. Intervertebral disc disease assessment is inherently limited by CT. Within these limitations, no high -grade canal stenosis suspected. Broad-based disc bulge is present at L4-5 and L5-S1. There is also right eccentric posterior spurring . This results in mild right neural foraminal narrowing. There is likely some encroachment on the tra versing right S1 nerve root. No significant central spinal stenosis. The broad-based disc bulge at L4 -5 does not result in significant neural foraminal narrowing or central spinal stenosis. IMPRESSION: No acute fracture of the lumbar spine. Mild degenerate disc disease as noted above. Consider MRI follow-up for assessment of disc disease if clinically desired.
--- NOTE | 2024-07-02 08:22 | ER ---
Nurse's Notes [facility] Name: Gwyn Callejas Age: 33 yrs Sex: Female : 1990 Arrival Date: 07/02/2024 Time: 07:08 Bed 7 Private MD: Diagnosis: Low back pain;Lumbago with sciatica, right side Presentation: 07/02 07:21 Chief complaint: EMS states: toned out to home for back pain. Denies injury. ld1 Coronavirus screen: At this time, the client does not indicate any symptoms associated with coronavirus-19. Ebola Screen: No symptoms or risks identified at this time. Initial Sepsis Screen: Does the patient meet any 2 criteria? No. Patient's initial sepsis screen is negative. Does the patient have a suspected source of infection? No. Patient's initial sepsis screen is negative. Risk Assessment: Do you want to hurt yourself or someone else? Patient reports no desire to harm self or others. Onset of symptoms was July 02, 2024. 07:21 Method Of Arrival: EMS: [facility] ld1 07:21 Acuity: MEG 3 ld1 Triage Assessment: 07:25 General: Appears in no apparent distress. uncomfortable, Behavior is anxious, ld1 uncooperative. Pain: Complains of pain in back Pain does not radiate. Pain currently is 8 out of 10 on a pain scale. Quality of pain is described as throbbing, Pain began suddenly, Is continuous. EENT: No signs and/or symptoms were reported regarding the EENT system. Neuro: Level of Consciousness is awake, alert, obeys commands, Oriented to person, place, time, situation, Appropriate for age. Cardiovascular: Capillary refill < 3 seconds Patient's skin is warm and dry. Respiratory: Airway is patent Respiratory effort is even, unlabored. GI: Abdomen is round non-distended. : No signs and/or symptoms were reported regarding the genitourinary system. Derm: No signs and/or symptoms reported regarding the dermatologic system. Musculoskeletal: No signs and/or symptoms reported regarding the musculoskeletal system. Historical: - Allergies: 07:25 No Known Allergies; ld1 - PMHx: 07:25 Anxiety; Kidney stones; Lupus erythematosus; Migraines; ld1 - PSHx: 07:25 Cholecystectomy; ld1 - Immunization history:: Adult Immunizations up to date. - Infectious Disease History:: Denies. - Social history:: Smoking status: Patient denies any tobacco usage or history of. - Family history:: not pertinent. Screenin:29 [facility] ED Fall Risk Assessment (Adult) History of falling in the last 3 months, ld1 including since admission No falls in past 3 months (0 pts) Confusion or Disorientation No (0 pts) Intoxicated or Sedated No (0 pts) Impaired Gait No (0 pts) Mobility Assist Device Used No (0 pt) Altered Elimination No (0 pt) Score/Fall Risk Level 0 - 2 = Low Risk Oriented to surroundings, Maintained a safe environment, Educated pt \T\ family on fall prevention, incl call for assistance when getting out of bed, Assessed \T\ reinforced patient's understanding of fall precautions, Provided non-skid footwear, Hourly rounding (assess needs \T\ fall precautionary measures) done, Used ambulatory aids as needed (educated on \T\ assisted with), Used gait belt as appropriate. Abuse screen: Denies threats or abuse. Denies injuries from another. Nutritional screening: No deficits noted. Tuberculosis screening: No symptoms or risk factors identified. Assessment: 07:29 Reassessment: See triage assessment. ld1 09:15 Reassessment: pt. in semi-Vogt's position; A\T\Ox4; no apparent S\T\S of distress; ar 6 respirations even \T\ unlabored; denies chest pain \T\ SOB at this time; call light within reach; bed locked \T\ lowered with SR upx2; plan of care ongoing. 09:20 Reassessment: pt. in semi-Vogt's position; A\T\Ox4; no apparent S\T\S of distress noticed ar 6 at this time; respirations even \T\ unlabored; denies chest pain \T\ SOB at this time; call light within reach; bed locked \T\ lowered with SR upx2; plan of care ongoing. 09:24 Reassessment: pt. in semi-Ovgt's position; A\T\Ox4; no apparent S\T\S of distress; ar 6 respirations even \T\ unlabored; denies chest pain \T\ SOB at this time; call light within reach; bed locked \T\ lowered with SR upx2; plan of care ongoing. 09:30 Reassessment: pt. in low-Vogt's position; A\T\Ox4; no apparent S\T\S of distress noticed ar 6 at this time; respirations even \T\ unlabored; denies chest pain \T\ SOB at this time; call light within reach; bed locked \T\ lowered with SR upx2; plan of care ongoing. 09:40 Reassessment: pt. on left side in low-Vogt's position; A\T\Ox4; no apparent S\T\S of ar 6 distress noticed at this time; respirations even \T\ unlabored; denies chest pain \T\ SOB at this time; call light within reach; bed locked \T\ lowered with SR upx2; plan of care ongoing. 09:50 Reassessment: pt. in low-Vogt's position; A\T\Ox4; no apparent S\T\S of distress noticed ar 6 at this time; respirations even \T\ unlabored; denies chest pain \T\ SOB at this time; call light within reach; bed locked \T\ lowered with SR upx2; plan of care ongoing. 10:03 Reassessment: pt. in low-Vogt's position; A\T\Ox4; no apparent S\T\S of distress noticed ar 6 at this time; respirations even \T\ unlabored; denies chest pain \T\ SOB at this time; call light within reach; bed locked \T\ lowered with SR upx2; plan of care ongoing. 10:30 Reassessment: pt. in low-folwer's on left side position; A\T\Ox4; denies SOB and chest ar6 pain at this time; no apparent S\T\S of distress noticed at this time; bed locked \T\ lowered with SR upx2; call light within reach; plan of care ongoing. 11:30 Reassessment: pt. in low-folwer's position; A\T\Ox4; denies SOB and chest pain at this ar6 time; no apparent S\T\S of distress noticed at this time; bed locked \T\ lowered with SR upx2; call light within reach; plan of care ongoing. 12:30 Reassessment: pt. in low-folwer's position on left side; A\T\Ox4; denies SOB and chest ar6 pain at this time; no apparent S\T\S of distress noticed at this time; bed locked \T\ lowered with SR upx2; call light within reach; plan of care ongoing. 13:09 Reassessment: pt. in low-folwer's position; A\T\Ox4; denies SOB and chest pain at this ar6 time; no apparent S\T\S of distress noticed at this time; bed locked \T\ lowered with SR upx2; call light within reach; plan of care ongoing. 13:43 Reassessment: pending d/c due to ride. ar6 Vital Signs: 07:17 BP 130 / 76; Pulse 77; Resp 18; Pulse Ox 100% on R/A; ld1 07:26 BP 130 / 76; Pulse 75; Resp 18; Temp 98.1(TE); Pulse Ox 97% on R/A; Weight 78.93 kg; ld1 Height 5 ft. 1 in. ; Pain 9/10; 07:31 BP 122 / 78; Pulse 75; Resp 18; Pulse Ox 100% on R/A; ld1 07:42 BP 131 / 83; Pulse 83; Resp 18; Pulse Ox 100% on R/A; ld1 08:07 BP 135 / 70; Pulse 97; Resp 18; Pulse Ox 100% on R/A; ld1 09:15 BP 125 / 68; Pulse 88; Resp 20; Pulse Ox 99% on R/A; ar6 09:19 BP 112 / 63; Pulse 84; Resp 19; Pulse Ox 100% on R/A; ar6 09:20 BP 119 / 60; Pulse 87; Resp 19; Pulse Ox 98% on R/A; ar6 09:30 BP 120 / 70; Pulse 82; Resp 19; Pulse Ox 98% on R/A; ar6 09:37 BP 120 / 70; Pulse 80; Resp 18; Pulse Ox 98% on R/A; ar6 09:40 BP 114 / 67; Pulse 78; Resp 18; Pulse Ox 99% on R/A; ar6 09:50 BP 109 / 63; Pulse 77; Resp 18; Pulse Ox 98% on R/A; ar6 10:00 BP 108 / 65; Pulse 74; Resp 19; Pulse Ox 99% on R/A; ar6 10:10 BP 107 / 57; Pulse 77; Resp 17; Pulse Ox 98% on R/A; ar6 10:20 BP 99 / 60; Pulse 71; Resp 18; Pulse Ox 99% on R/A; ar6 10:30 BP 106 / 62; Pulse 82; Pulse Ox 99% on R/A; ar6 10:49 BP 109 / 68; Pulse 79; Resp 18; Pulse Ox 99% on R/A; ar6 11:00 BP 117 / 72; Pulse 77; Resp 14; Pulse Ox 99% on R/A; ld1 11:20 BP 126 / 76; Pulse 79; Resp 14; Pulse Ox 99% on R/A; ld1 11:40 BP 126 / 76; Pulse 75; Resp 12; Pulse Ox 96% on R/A; ld1 12:30 BP 138 / 73; Pulse 77; Resp 18; Pulse Ox 99% on R/A; ar6 13:02 BP 132 / 74; Pulse 76; Resp 18; Pulse Ox 100% on R/A; ld1 13:25 BP 123 / 78; Pulse 96; Resp 18; Pulse Ox 99% ; ar6 07:26 Body Mass Index 32.88 (78.93 kg, 154.94 cm) ld1 07:26 Pain Scale: Adult ld1 ED Course: 07:14 Patient arrived in ED. rt 07:14 Stevenson Harkins MD is Attending Physician. rt 07:25 Triage completed. ld1 07:25 Arm band placed on right wrist. ld1 07:29 Patient has correct armband on for positive identification. Placed in gown. Bed in low ld1 position. Call light in reach. Side rails up X2. Pulse ox on. NIBP on. Door closed. Noise minimized. Warm blanket given. 07:29 No provider procedures requiring assistance completed. ld1 07:30 Caroline Jama, ETHAN is Primary Nurse. ld1 07:36 CT Lumbar Spine Wo Con In Process Unspecified. EDMS 13:58 IV discontinued, intact, bleeding controlled, No redness/swelling at site. Pressure ld1 dressing applied. 18:24 Provided Education on: pain managment. ld1 Administered Medications: 07:53 Drug: Dexamethasone IVP 10 mg IVP once; (not to exceed 40 mg) Route: IVP; Site: left ar6 antecubital; 08:30 Follow up: Response: No adverse reaction ar6 07:53 Drug: Acetaminophen PO 1000 mg PO once Route: PO; ar6 08:30 Follow up: Response: No adverse reaction ar6 07:54 Drug: morphine IVP or IV 4 mg IVP once over 4 mins Route: IVP; Infused Over: 4 mins; ar6 Site: left antecubital; 08:30 Follow up: Response: No adverse reaction ld1 07:54 Drug: Ondansetron IVP 4 mg IVP once; over 2 minutes Route: IVP; Site: left antecubital; ar6 08:30 Follow up: Response: No adverse reaction ar6 07:54 Drug: Cyclobenzaprine PO 10 mg PO once Route: PO; ar6 08:30 Follow up: Response: No adverse reaction ar6 07:54 Drug: Gabapentin PO 300 mg PO once Route: PO; ar6 08:30 Follow up: Response: No adverse reaction ar6 09:00 CANCELLED (no longer needed): ativan1 mg IVP once rt 13:09 Drug: morphine IVP or IV 4 mg IVP once over 4 mins Route: IVP; Infused Over: 4 mins; ar6 Site: left antecubital; 13:34 Follow up: Response: No adverse reaction; Pain is decreased ar6 13:35 Follow up: Response: No adverse reaction ld1 Medication: 07:29 VIS not applicable for this client. ld1 Outcome: 08:21 Discharge ordered by MD. rt 13:05 Discharge ordered by MD. rt 13:58 Condition: stable ld1 13:59 Discharged to home via wheelchair, with family, ld1 13:59 Discharge instructions given to patient, family, Instructed on discharge instructions, follow up and referral plans. Demonstrated understanding of instructions, follow-up care, medications, Prescriptions given X 4, 13:59 Patient left the ED. ld1 Signatures: Dispatcher [employer] EDMS Caroline Jama RN RN ld1 Stevenson Harkins MD MD rt Yeni Menjivar RN RN ar6 Corrections: (The following items were deleted from the chart) 07:29 07:19 Chief complaint: ld1 ld1 09:19 09:17 BP 128 / 71; Pulse 90bpm; Resp 19bpm; Pulse Ox 98% RA; ar6 ar6
--- NOTE | 2024-07-02 08:22 | EDPHYS ---
Physician Documentation [facility] Name: Gwyn Callejas Age: 33 yrs Sex: Female : 1990 Arrival Date: 07/02/2024 Time: 07:08 Bed 7 Private MD: ED Physician Stevenson Harkins HPI: 07/02 07:34 This 33 yrs old Female presents to ER via EMS with complaints of Back Pain. rt 07:34 Patient presents to the ED with a low back pain, on the left side radiating down the rt leg. Patient states that she had a fall about a week or 2 ago. States that she was walking and there for quite a bit yesterday. Reports that the pain worsened since then. Denies other injury, acute complaints, symptoms are moderate severity, aching nature, no other aggravating or alleviating factors.. Historical: - Allergies: 07:25 No Known Allergies; ld1 - PMHx: 07:25 Anxiety; Kidney stones; Lupus erythematosus; Migraines; ld1 - PSHx: 07:25 Cholecystectomy; ld1 - Immunization history:: Adult Immunizations up to date. - Infectious Disease History:: Denies. - Social history:: Smoking status: Patient denies any tobacco usage or history of. - Family history:: not pertinent. ROS: 07:34 Constitutional: Negative for fever, chills, and weight loss, Cardiovascular: Negative rt for chest pain, palpitations, and edema, Respiratory: Negative for shortness of breath, cough, wheezing, and pleuritic chest pain, Abdomen/GI: Negative for abdominal pain, nausea, vomiting, diarrhea, and constipation, MS/Extremity: Negative for injury and deformity, Skin: Negative for injury, rash, and discoloration, Neuro: Negative for headache, weakness, numbness, tingling, and seizure, 07:34 Back: Positive for pain at rest, pain with movement, radiated pain, Exam: 07:34 Constitutional: This is a well developed, well nourished patient who is awake, alert, rt and in no acute distress. Head/Face: Normocephalic, atraumatic. Chest/axilla: Normal chest wall appearance and motion. Nontender with no deformity. No lesions are appreciated. Cardiovascular: Regular rate and rhythm with a normal S1 and S2. No gallops, murmurs, or rubs. Normal PMI, no JVD. No pulse deficits. Respiratory: Lungs have equal breath sounds bilaterally, clear to auscultation and percussion. No rales, rhonchi or wheezes noted. No increased work of breathing, no retractions or nasal flaring. Abdomen/GI: Soft, non-tender, with normal bowel sounds. No distension or tympany. No guarding or rebound. No evidence of tenderness throughout. Skin: Warm, dry with normal turgor. Normal color with no rashes, no lesions, and no evidence of cellulitis. MS/ Extremity: Pulses equal, no cyanosis. Neurovascular intact. Full, normal range of motion. Neuro: Awake and alert, GCS 15, oriented to person, place, time, and situation. Cranial nerves II-XII grossly intact. Motor strength 5/5 in all extremities. Sensory grossly intact. Cerebellar exam normal. Normal gait. 09:58 ECG was reviewed by the Attending Physician. rt Vital Signs: 07:17 BP 130 / 76; Pulse 77; Resp 18; Pulse Ox 100% on R/A; ld1 07:26 BP 130 / 76; Pulse 75; Resp 18; Temp 98.1(TE); Pulse Ox 97% on R/A; Weight 78.93 kg; ld1 Height 5 ft. 1 in. ; Pain 9/10; 07:31 BP 122 / 78; Pulse 75; Resp 18; Pulse Ox 100% on R/A; ld1 07:42 BP 131 / 83; Pulse 83; Resp 18; Pulse Ox 100% on R/A; ld1 08:07 BP 135 / 70; Pulse 97; Resp 18; Pulse Ox 100% on R/A; ld1 09:15 BP 125 / 68; Pulse 88; Resp 20; Pulse Ox 99% on R/A; ar6 09:19 BP 112 / 63; Pulse 84; Resp 19; Pulse Ox 100% on R/A; ar6 09:20 BP 119 / 60; Pulse 87; Resp 19; Pulse Ox 98% on R/A; ar6 09:30 BP 120 / 70; Pulse 82; Resp 19; Pulse Ox 98% on R/A; ar6 09:37 BP 120 / 70; Pulse 80; Resp 18; Pulse Ox 98% on R/A; ar6 09:40 BP 114 / 67; Pulse 78; Resp 18; Pulse Ox 99% on R/A; ar6 09:50 BP 109 / 63; Pulse 77; Resp 18; Pulse Ox 98% on R/A; ar6 10:00 BP 108 / 65; Pulse 74; Resp 19; Pulse Ox 99% on R/A; ar6 10:10 BP 107 / 57; Pulse 77; Resp 17; Pulse Ox 98% on R/A; ar6 10:20 BP 99 / 60; Pulse 71; Resp 18; Pulse Ox 99% on R/A; ar6 10:30 BP 106 / 62; Pulse 82; Pulse Ox 99% on R/A; ar6 10:49 BP 109 / 68; Pulse 79; Resp 18; Pulse Ox 99% on R/A; ar6 11:00 BP 117 / 72; Pulse 77; Resp 14; Pulse Ox 99% on R/A; ld1 11:20 BP 126 / 76; Pulse 79; Resp 14; Pulse Ox 99% on R/A; ld1 11:40 BP 126 / 76; Pulse 75; Resp 12; Pulse Ox 96% on R/A; ld1 12:30 BP 138 / 73; Pulse 77; Resp 18; Pulse Ox 99% on R/A; ar6 13:02 BP 132 / 74; Pulse 76; Resp 18; Pulse Ox 100% on R/A; ld1 13:25 BP 123 / 78; Pulse 96; Resp 18; Pulse Ox 99% ; ar6 07:26 Body Mass Index 32.88 (78.93 kg, 154.94 cm) ld1 07:26 Pain Scale: Adult ld1 MDM: 07:14 Patient medically screened. rt 15:16 Differential diagnosis: Disc disease, mechanical back pain. Data reviewed: vital signs, rt nurses notes. Consideration of Admission/Observation Escalation of care including admission/observation considered. I considered the following discharge prescriptions or medication management in the emergency department Medications were administered in the Emergency Department. See MAR. Independent interpretation of the following test(s) in the Emergency Department CT Scan: My interpretation is No compression fracture syndrome interpretation of CT scan images. Counseling: I had a detailed discussion with the patient and/or guardian regarding the historical points, exam findings, and any diagnostic results supporting the discharge/admit diagnosis, radiology results. ED course: During stay, patient was given a headache cocktail intended for another patient in error. It seems as if she had a dystonic reaction to the Reglan. Patient was observed for several hours in the emergency department. EKG was unremarkable. The dystonic reaction did stop. Patient is found to have multiple disc disease, no emergent indications for surgery. She was instructed to follow-up with primary care for further management. Will prescribe patient pain medications.. 07/02 07:25 Order name: CT Lumbar Spine Wo Con; Complete Time: 07:50 rt 07/02 09:36 Order name: EKG; Complete Time: 09:37 rt 07/02 09:36 Order name: EKG - Nurse/Tech; Complete Time: 09:58 rt EC:58 Rate is 79 beats/min. Rhythm is regular, Normal Sinus Rhythm with No ectopy. QRS [place] rt is Normal. SC interval is normal. QRS interval is normal. QT interval is normal. No Q waves. T waves are Normal. No ST changes noted. Interpreted by me. Administered Medications: 07:53 Drug: Dexamethasone IVP 10 mg IVP once; (not to exceed 40 mg) Route: IVP; Site: left ar6 antecubital; 08:30 Follow up: Response: No adverse reaction ar6 07:53 Drug: Acetaminophen PO 1000 mg PO once Route: PO; ar6 08:30 Follow up: Response: No adverse reaction ar6 07:54 Drug: morphine IVP or IV 4 mg IVP once over 4 mins Route: IVP; Infused Over: 4 mins; ar6 Site: left antecubital; 08:30 Follow up: Response: No adverse reaction ld1 07:54 Drug: Ondansetron IVP 4 mg IVP once; over 2 minutes Route: IVP; Site: left antecubital; ar6 08:30 Follow up: Response: No adverse reaction ar6 07:54 Drug: Cyclobenzaprine PO 10 mg PO once Route: PO; ar6 08:30 Follow up: Response: No adverse reaction ar6 07:54 Drug: Gabapentin PO 300 mg PO once Route: PO; ar6 08:30 Follow up: Response: No adverse reaction ar6 09:00 CANCELLED (no longer needed): ativan1 mg IVP once rt 13:09 Drug: morphine IVP or IV 4 mg IVP once over 4 mins Route: IVP; Infused Over: 4 mins; ar6 Site: left antecubital; 13:34 Follow up: Response: No adverse reaction; Pain is decreased ar6 13:35 Follow up: Response: No adverse reaction ld1 Disposition Summary: 07/02/24 13:05 Discharge Ordered Notes: Location: Home(07/02/24 13:05) rt Problem: new(07/02/24 13:05) rt Symptoms: have improved(07/02/24 13:05) rt Condition: Stable(07/02/24 13:05) rt Diagnosis - Low back pain rt - Lumbago with sciatica, right side(07/02/24 13:05) rt Followup: rt - With: Private Physician - When: 2 - 3 days - Reason: Forms: - Medication Reconciliation Form rt - Antibiotic Education rt - Prescription Opioid Use rt - Patient Portal Instructions rt - Leadership Thank You Letter rt Signatures: Dispatcher [employer] Caroline Cintron RN RN ld1 Stevenson Harkins MD MD rt Yeni Menjivar RN RN ar6 Corrections: (The following items were deleted from the chart) 08:57 08:21 Home rt rt 08:57 08:21 new rt rt 08:57 08:21 have improved rt rt 08:57 08:21 Stable rt rt 08:57 08:21 Lumbago with sciatica, right side rt rt 08:57 08:21 Other intervertebral disc displacement, lumbar region rt rt 09:00 08:58 Ativan IVP 1 mg IVP once ordered. rt rt
[2024-07-02] MEDS ORDERED: LORazepam 2 MG/ML VIAL ONE (08:58)
[2024-07-02 14:05] VITALS: TEMP 98.1
[2024-07-02 14:29] VITALS: BP 123/78; O2SAT 99
== END 2024-07-02 13:59 | disposition home or self-care (01) ==
LOC: ER 07:08
DX: M54.41 Lumbago with sciatica, right side (principal)
CPT/HCPCS: 72131; 93005; J1100; J2405